=== PATIENT | male | born 1960 | race Caucasian/White ===

== ENCOUNTER 2019-05-06 13:40 | Emergency (ER) | payer MEDICARE, OTHER, MEDICAID ==
[~2019-05-06] VITALS: Ht 182.9 cm; Wt 97.1 kg
[~2019-05-06 13:40] MED LIST: CLOTRIMAZOLE-BE15 GM TOP; CRESTOR20 MG PO; DIAZEPAM5 MG; DIAZEPAM5 MG PO; DILAUDID4 MG PO; FLOMAX0.4 MG PO; FOLIC ACID1 MG PO; HYDROMORPHONE HC8 MG; HYDROXYZINE HCL25 MG; LIDODERM700 MG; LYRICA150 MG; LYRICA225 MG PO; METHOTREXATE2.5 MG PO; PATADAY2.5 ML OU; PERCOCET 5-3251 EACH PO; PLAQUENIL200 MG; PLAQUENIL200 MG PO; PREDNISONE5 MG PO; PREVACID30 MG; PROAIR HFA8.5 GM INH; SONATA10 MG PO; SUDOGEST30 MG PO; TAMIFLU75 MG PO; ZALEPLON10 MG
--- OUTSIDE RECORDS SUMMARY | 2019-05-06 13:42 | XMS ---
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 Care History Medical/Surgical 07/19/2016 [facility] Care Recommendation: Please consider a referral to the [place] if further Case Management intervention is indicated. This care plan reflects only preliminary guidelines and no case management intervention. Primary Care Provider (PCP): Jodee Melvin MD [address] [place] Problem List: Abd pain, fibromyalgia, rheumatoid arthrisis If patient presents in the emergency for non-emergent issues, it may be appropriate for this patient to seek care at an Urgent Care Center instead of the Emergency Room. Please offer this alternate plan to the patient and provide list of Urgent Care Clinics. Educate patient regarding the proper use of the Emergency Room. Redirect patient to his/her PCP for care that does not require the use of the Emergency Department. If patient is uninsured at this time, please encourage patient to seek care outside of the Emergency Department for non-emergent conditions. Encourage patient to seek care at [facility] or [facility]. If the patient reports not having a PCP, please provide a list of PCPs or refer the patient to the corrections caseworker in the ER to help coordinate services. Please contact your [facility] department if further intervention is needed in the care of this patient. [place] VISIT COUNT (12 MO.) [address] TOTAL 2 NOTE: Visits indicate total known visits. ED/UCC VISIT TRACKING (12 MO.) 05/06/2019 13:41 [facility] [place] TYPE: Emergency COMPLAINT: - LEFT EAR LAC 02/06/2019 08:13 [facility] [place] TYPE: Emergency DIAGNOSES: - Acute gastritis without bleeding - Nausea with vomiting, unspecified - VOMITING DIARRHEA - Generalized abdominal pain INPATIENT VISIT TRACKING (12 MO.) No inpatient visits to display in this time frame [email or web address]
[2019-05-06] MEDS ORDERED: FENTANYL1 EAC1 TD (13:52)
[2019-05-06] MEDS ORDERED: KEFLEX500 MG PO (14:29)
== END 2019-05-06 14:43 | disposition home or self-care (01) ==
LOC: ED 13:40
PROC: 0HQ3XZZ Repair Left Ear Skin, External Approach (ICD-10-PCS; principal; 2019-05-06)
DX: S01.312A Laceration without foreign body of left ear, initial encounter (principal); K21.9 Gastro-esophageal reflux disease without esophagitis; Z88.5 Allergy status to narcotic agent; Z79.52 Long term (current) use of systemic steroids; Z79.899 Other long term (current) drug therapy; W45.8XXA Other foreign body or object entering through skin, initial encounter
CPT/HCPCS: 12011; 90471; 90715; 99282-25

== ENCOUNTER 2022-01-20 19:30 | Emergency (ER) | payer MEDICARE, MEDICAID ==
[~2022-01-20] VITALS: Ht 182.9 cm; Wt 102.1 kg
[~2022-01-20 19:30] MED LIST changes: +FENTANYL1 EAC1 TD; +KEFLEX500 MG PO
--- OUTSIDE RECORDS SUMMARY | 2022-01-20 19:32 | XMS ---
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 [facility] has no Care Guidelines for this patient. Care History Medical/Surgical 07/19/2016 [facility] Care Recommendation: Please consider a referral to the [facility] if further Case Management intervention is indicated. This care plan reflects only preliminary guidelines and no case management intervention. Primary Care Provider (PCP): Jodee Melvin MD [address] [place] Problem List: Abd pain, fibromyalgia, rheumatoid [...] conditions. Encourage patient to seek care at [facility] or [facility]. If the patient reports not having a PCP, please provide a list of PCPs or refer the patient to the family independence case manager in the ER to help coordinate services. Please contact your facilitys Case Management department if further intervention is needed in the care of this patient. E.D. VISIT COUNT (12 MO.) 3 [facility] 2 [facility] 1 [facility] 1 [facility] TOTAL 7 NOTE: Visits indicate total known visits. ED/C VISIT TRACKING (12 MO.) 01/20/2022 19:31 [facility] [place] TYPE: Emergency COMPLAINT: - LOW OXYGEN LEVELS 01/18/2022 11:31 [facility] Collin DÍAZ TYPE: Emergency DIAGNOSES: - Headache, unspecified - Headache; Weakness; Body Aches; X2 hours - Other malaise - Weakness 12/04[facility]2021 10:[facility] DIAGNOSES: - Urinary tract infection, site not specified - Localized edema - BILAT LEG SWELLING [facility]21 [facility] [facility] DIAGNOSES: - Chills - Weakness - Acute cystitis with hematuria 09/13/2021 09:17 [facility] [place] TYPE: Emergency DIAGNOSES: - COVID-19 - NOT FEELING WELL - Pneumonia due to coronavirus disease 2018 07/20/2021 16:27 [facility] [place] TYPE: Emergency DIAGNOSES: - POST OP PAIN - Other retention of urine 06/18/2021 07:[address] [facility] TYPE: Emergency DIAGNOSES: - Abdominal Pain - abd pain, shoulder pain (R shoulder) - Shoulder Pain - Back Pain - Umbilical hernia without obstruction or gangrene - Strain of unspecified muscle, fascia and tendon at shoulder and upper arm level, right arm, initial encounter - Follicular disorder, unspecified INPATIENT VISIT TRACKING (12 MO.) 09/14/2021 14:00 [facility] TYPE: Orthopedic DIAGNOSES: - Acute respiratory distress syndrome - Retention of urine, unspecified - Sepsis, unspecified organism - Gross hematuria - Severe sepsis with septic shock - Elevated white blood cell count, unspecified - Other specified personal risk factors, not elsewhere classified - Encephalopathy, unspecified - shelter (current) use of anticoagulants - Other obstructive and reflux uropathy - Unspecified severe protein-calorie malnutrition - Iron deficiency anemia secondary to blood loss (chronic) - Other cystitis without hematuria - Other specified disorders of bladder - Pneumonia due to other Gram-negative bacteria - Benign prostatic hyperplasia with lower urinary tract symptoms - Muscle weakness (generalized) - Acute respiratory failure with hypoxia - Bradycardia, unspecified - Acute kidney failure, unspecified - Encounter for screening for malignant neoplasm of prostate - Candidal cystitis and urethritis - Non-ST elevation (NSTEMI) myocardial infarction - Obstructive and reflux uropathy, unspecified - Pneumonia due to staphylococcus, unspecified - COVID-19 09/13/2021 09:17 [facility] [place] TYPE: Medical Surgical DIAGNOSES: - Pneumonia due to coronavirus disease 2019 - COVID-19 - Acute respiratory failure with hypoxia [id number]
--- NOTE | 2022-01-21 07:23 | EKG ---
[facility] [address] [place] [address] Signed Sinus bradycardia with 1st degree AV block Left ventricular hypertrophy with QRS widening ( R in aVL , [place] product ) Abnormal ECG No previous ECGs available Confirmed by CARLOS YOUNG MD ([id number]) on 01/21/2022 7:23:14 AM Electronically Signed By: CARLOS YOUNG MD 01/21/22 0723 PATIENT NAME: SHAYNE DICKERSON SERGIO Electrocardiogram DATE OF : 58 PHYSICIAN: CARLOS YOUNG MD REPORT #: [id number] REPORT IS CONFIDENTIAL AND NOT TO BE RELEASED WITHOUT AUTHORIZATION
== END 2022-01-20 21:48 | disposition home or self-care (01) ==
LOC: ED 19:30
DX: R06.00 Dyspnea, unspecified (principal); R09.02 Hypoxemia; U09.9 Post COVID-19 condition, unspecified; K21.9 Gastro-esophageal reflux disease without esophagitis; Z88.5 Allergy status to narcotic agent; Z79.899 Other long term (current) drug therapy; Z79.52 Long term (current) use of systemic steroids
CPT/HCPCS: 36415; 71045; 80053; 83880; 84484; 85025; 99285-25

== ENCOUNTER 2024-09-22 23:52 | Emergency (ER) | payer MEDICARE, MEDICAID, OTHER ==
[~2024-09-22] VITALS: Ht 182.9 cm; Wt 104.5 kg
[~2024-09-22 23:52] MED LIST changes: +AMOX TR-K CLV1 EAC1 PO; +CEPHALEXIN500 MG PO; +LISINOPRIL20 MG PO; +MYRBETRIQ25 MG PO; +OXYCODONE HCL10 MG PO; +PREGABALIN300 MG PO; +PREVACID 24HR15 MG PO; +ROSUVASTATIN CA40 MG PO; +TAMSULOSIN HCL0.4 MG PO
[2024-09-23 00:47] LABS: BASOPHILS 0.8 % (0-2); EOSINOPHILS 6.3 % (0-6); HEMATOCRIT 37.5 % (35.0-50.0); LYMPHOCYTES 32.1 % (24-44); MCH 31.8 (27-36); MCHC 34.6 g/dl (30-36); MCV 91.8 fl (81-99); MONOCYTES 10.5 % (0-12); NEUTROPHILS 50.3 % (39-80); PLATELET COUNT 165 K/uL (140-440); RBC 4.08 M/ul (4.3-5.7); RDW 13.7 (10.5-15.0)
[2024-09-23 01:04] LABS: ALBUMIN 3.4 g/dL (3.4-5.0); ANION GAP 7.8 (7-21); BILIRUBIN, TOTAL 0.5 ng/dL (0.2-1.0); BUN/CREATININE RATIO 13.27 (6.0-28.6); CALCIUM 8.8 mg/dL (8.5-10.1); CREATININE, SERUM 1.13 mg/dL (0.70-1.30); POTASSIUM 3.8 mmol/L (3.5-5.1); PROTEIN, TOTAL 6.8 g/dL (6.4-8.2)
[2024-09-23] MEDS ORDERED: CEPHALEXIN500 M1 PO (01:28)
[2024-09-23] MEDS ORDERED: HYDROCODON-ACE1 EA10 PO (01:28)
[2024-09-23] MEDS ORDERED: HYDROCODONE BIT/ACETAMINOPHEN 5/325 MG 1 TAB HOME.PACK PO ONE (01:45)
[2024-09-23] MEDS ORDERED: CEPHALEXIN MONOHYDRATE 500 MG HOME.PACK PO ONE (01:45)
[2024-09-23 01:46] VITALS: BP 131/82
== END 2024-09-23 01:47 | disposition home or self-care (01) ==
LOC: ED 23:52
PROVIDERS: Family Medicine
DX: S76.912A Strain of unspecified muscles, fascia and tendons at thigh level, left thigh, initial encounter (principal); M25.462 Effusion, left knee; X58.XXXA Exposure to other specified factors, initial encounter; Z88.5 Allergy status to narcotic agent; Z79.899 Other long term (current) drug therapy
CPT/HCPCS: 36415; 80053; 85025; 86140; 93971; 99284; A9270

== ENCOUNTER 2024-11-09 11:14 | Emergency (ER) | payer MEDICARE, OTHER, MEDICAID ==
[~2024-11-09] VITALS: Ht 182.9 cm; Wt 109.5 kg
[~2024-11-09 11:14] MED LIST changes: +CEPHALEXIN500 M1 PO; +HYDROCODON-ACE1 EA10 PO
[2024-11-09 12:57] LABS: INFLUENZA B NAA NEGATIVE (NEGATIVE); RESPIRATORY SYNCYTIAL VIR NAA NEGATIVE (NEGATIVE)
[2024-11-09 13:30] VITALS: BP 146/93
== END 2024-11-09 13:30 | disposition home or self-care (01) ==
LOC: ED 11:14
PROVIDERS: Emergency Medicine
DX: J06.9 Acute upper respiratory infection, unspecified (principal); Z88.5 Allergy status to narcotic agent; Z79.899 Other long term (current) drug therapy; Z11.52 Encounter for screening for COVID-19
CPT/HCPCS: 71046; 87502; 99283-25; U0002

== ENCOUNTER 2025-04-12 22:43 | Emergency (ER) | payer MEDICARE, OTHER, MEDICAID ==
[~2025-04-12] VITALS: Ht 182.9 cm; Wt 104.5 kg
[2025-04-13] MEDS ORDERED: LACTATED RINGER'S 1,000 ML IV ONE (00:30)
[2025-04-13] MEDS ORDERED: HYDROmorphone HCL 1 MG/ML SYR IV ONE (00:30)
[2025-04-13] MEDS ORDERED: ondansetron HCL 4 MG/2 ML VIAL IV ONE (00:30)
[2025-04-13 00:34] LABS: BASOPHILS 0.1 % (0.2-1.2); EOSINOPHILS 3.1 % (0.8-7.0); HEMATOCRIT 48.9 % (40.1-51.0); HEMOGLOBIN 15.9 g/dL (13.7-17.5); LYMPHOCYTES 8.8 % (21.8-53.1); MCH 30.1 PG (25.7-32.2); MCHC 32.5 g/dL (32.3-36.5); MCV 92.4 fL (79.0-92.2); MONOCYTES 6.6 % (5.3-12.2); NEUTROPHILS 81.3 % (34.0-67.9); PLATELET COUNT 161 K/uL (163-337); RBC 5.29 M/uL (4.63-6.08)
[2025-04-13 00:44] LABS: ALBUMIN 3.8 g/dL (3.4-5.0); ANION GAP 9.1 (7-21); BILIRUBIN, TOTAL 0.8 mg/dL (0.2-1.0); BUN/CREATININE RATIO 20.4 (6.0-28.6); CALCIUM 8.8 mg/dL (8.5-10.1); CREATININE, SERUM 0.98 mg/dL (0.70-1.30); MAGNESIUM 2.2 mg/dL (1.8-2.4); POTASSIUM 4.1 mmol/L (3.5-5.1); PROTEIN, TOTAL 7.6 g/dL (6.4-8.2)
[2025-04-13] MEDS ORDERED: PERCOCET 10-321 EACH PO (01:41)
[2025-04-13] MEDS ORDERED: PROMETHAZINE HCL 25 MG SUPP. HOME.PACK PR ONE (01:45)
[2025-04-13] MEDS ORDERED: ONDANSETRON 4 MG HOME.PACK SL ONE (01:45)
[2025-04-13] MEDS ORDERED: NALOXONE 4 MG NASAL SPRAY #2 HOME.PACK NAS ONE (01:45)
[2025-04-13] MEDS ORDERED: HYDROmorphone HCL 2 MG HOME.PACK PO ONE (01:45)
[2025-04-13 02:10] VITALS: BP 100/65
== END 2025-04-13 02:15 | disposition home or self-care (01) ==
LOC: ED 22:43
PROVIDERS: Family Medicine
DX: R11.2 Nausea with vomiting, unspecified (principal); R10.9 Unspecified abdominal pain; R19.7 Diarrhea, unspecified; K21.9 Gastro-esophageal reflux disease without esophagitis; Z88.5 Allergy status to narcotic agent; Z79.899 Other long term (current) drug therapy
CPT/HCPCS: 36415; 80053; 83735; 85025; 96374; 96375; 99284-25; A9270; J1171; J2405; J3490; J7121

== ENCOUNTER 2025-08-13 18:00 | Emergency (ER) | payer MEDICARE, OTHER, MEDICAID ==
[~2025-08-13] VITALS: Ht 182.9 cm; Wt 103.0 kg
[~2025-08-13 18:00] MED LIST changes: +PERCOCET 10-321 EACH PO
[2025-08-13] MEDS ORDERED: MORPHINE SULFAT30 M2 PO (18:56)
[2025-08-13 22:11] VITALS: BP 136/76
== END 2025-08-13 22:13 | disposition left against medical advice (07) ==
LOC: ED 18:00
DX: Z53.21 Procedure and treatment not carried out due to patient leaving prior to being seen by health care provider (principal)